=== PATIENT | female | born 1985 | race African-American/Black ===

== ENCOUNTER 2017-07-28 12:08 | Emergency (ER) | payer OTHER ==
[~2017-07-28] VITALS: Ht 154.9 cm; Wt 47.1 kg
[~2017-07-28 12:08] MED LIST: HYDROCODON-ACE1 EAC7 PO; IBUPROFEN800 MG PO; Motrin PO; PRILOSEC20 MG PO; Percocet 5/325,Endoc PO; REGLAN10 MG PO
[2017-07-28 13:48] LABS: HEMATOCRIT 33.5 % (36.0-46.0); HEMOGLOBIN 11.6 G/DL (11.9-15.5); MCH 28.2 PG (29.0-34.0); MCHC 34.6 G/DL (30.0-36.0); MCV 81.3 FL (83-99); RBC DIS.WIDTH-CV 13.1 % (11.8-14.6); RBC DIS.WIDTH-SD 38.8 % (39-53); RED BLOOD COUNT 4.12 M/uL (3.80-5.20); WHITE BLOOD COUNT 14.6 K/uL (4.1-10.2)
[2017-07-28 14:37] LABS: PLAT.SUFFICIENCY ADEQUATE; PLATELET COUNT 201 K/uL (156-360)
[2017-07-28] MEDS ORDERED: CLINDAMYCIN HC150 MG PO (16:55)
[2017-07-28] MEDS ORDERED: NORCO 5/3251 TABLET PO (16:55)
[2017-07-28 17:05] VITALS: BP 104/58
== END 2017-07-28 17:06 | disposition home or self-care (01) ==
LOC: EME 12:08
PROVIDERS: Physician Assistant
DX: K04.7 Periapical abscess without sinus (principal); J45.909 Unspecified asthma, uncomplicated; F17.200 Nicotine dependence, unspecified, uncomplicated; Z88.1 Allergy status to other antibiotic agents; Z88.8 Allergy status to other drugs, medicaments and biological substances
CPT/HCPCS: 70487; 84702; 85027; 99281; 99285; J1885; J7040

== ENCOUNTER 2017-07-30 14:12 | Emergency (ER) | payer OTHER ==
[~2017-07-30] VITALS: Ht 152.4 cm; Wt 47.6 kg
[~2017-07-30 14:12] MED LIST changes: +CLINDAMYCIN HC150 MG PO; +NORCO 5/3251 TABLET PO
[2017-07-30 15:11] LABS: HEMATOCRIT 33.5 % (36.0-46.0); HEMOGLOBIN 11.4 G/DL (11.9-15.5); MCH 27.3 PG (29.0-34.0); MCV 80.3 FL (83-99); PLATELET COUNT 219 K/uL (156-360); RBC DIS.WIDTH-SD 37.8 % (39-53); RED BLOOD COUNT 4.17 M/uL (3.80-5.20); WHITE BLOOD COUNT 12.8 K/uL (4.1-10.2)
[2017-07-30 15:21] LABS: CHLORIDE 104 mEq/L (99-109); POTASSIUM 3.3 mEq/L (3.7-5.4); SODIUM 140 mEq/L (136-147)
[2017-07-30 15:23] LABS: GLUCOSE 80 mg/dL (70-99)
[2017-07-30 15:27] LABS: CREATININE 0.5 mg/dL (0.6-1.3); GFR ESTIMATE (CALCULATED) > 59 mL/min/
[2017-07-30 15:28] LABS: UREA NITROGEN (BUN) 7 mg/dL (9-23)
[2017-07-30 21:35] VITALS: BP 114/67
== END 2017-07-30 21:36 | disposition short-term general hospital (02) ==
LOC: EME 14:12
PROVIDERS: Nurse Practitioner Family
DX: K04.7 Periapical abscess without sinus (principal); L02.11 Cutaneous abscess of neck; K02.9 Dental caries, unspecified; J45.909 Unspecified asthma, uncomplicated; F17.200 Nicotine dependence, unspecified, uncomplicated; Z88.8 Allergy status to other drugs, medicaments and biological substances
CPT/HCPCS: 70498; 80048; 83605; 85027; 87040; 99281; 99285; J0295; J1885; J2405; J3010; J7030; J7050; J7120